=== PATIENT | female | born 1965 | race Caucasian/White ===

== ENCOUNTER → 2021-03-16 | Outpatient (CLI) | payer OTHER | LOC: EDBD 13:26 → HEART CORB 13:26 | DX: R07.2 Precordial pain (principal); I10 Essential (primary) hypertension; R60.0 Localized edema; I08.3 Combined rheumatic disorders of mitral, aortic and tricuspid valves; R94.39 Abnormal result of other cardiovascular function study | CPT/HCPCS: 93306 ==

== ENCOUNTER 2021-07-18 06:40 | Emergency (ER) | payer OTHER ==
[2021-07-18] MEDS ORDERED: SENOKOT-S TABL1 EACH PO (09:14)
[2021-07-18] MEDS ORDERED: ZOFRAN ODT 4 MG4 MG PO (09:14)
[2021-07-18] MEDS ORDERED: PERCOCET 5-3251 EACH PO (09:14)
== END 2021-07-18 09:15 | disposition home or self-care (01) ==
LOC: ER1 06:40
DX: S82.851A Displaced trimalleolar fracture of right lower leg, initial encounter for closed fracture (principal); S80.812A Abrasion, left lower leg, initial encounter; I10 Essential (primary) hypertension; Y92.009 Unspecified place in unspecified non-institutional (private) residence as the place of occurrence of the external cause; W01.0XXA Fall on same level from slipping, tripping and stumbling without subsequent striking against object, initial encounter
CPT/HCPCS: 27810; 73610; 73630; 73700; 96374; 96375; 99284; J1885; J2270; J2405; J2704